=== PATIENT | female | born 2000 | race Caucasian/White ===

== ENCOUNTER 2023-07-17 09:09 | Outpatient (CLI) | payer BC, SELFPAY ==
--- NOTE | 2023-07-17 11:00 | NEURO_ITS ---
Impression: # Complains of spasms in right upper extremity. # No Carpal Tunnel Syndrome or ulnar neuropathy. # Needle/EMG exam negative for myotonia or denervation potentials # Clinical correlation recommended. Could benefit from cervical MRI. Nerve Conduction Studies Anti Sensory Summary Table Stim Site NR Peak (ms) P-T Amp (?V) Site1 Site2 Delta-P (ms) Dist (cm) Deacon (m/s) Right Median Anti Sensory (2-3nd Digit) Wrist 2.6 58.9 Wrist 2-3nd Digit 2.6 14.0 54 Wrist 2.4 74.9 Wrist 2-3nd Digit 2.6 14.0 54 Right Radial Anti Sensory (Base 1st Digit) Wrist 2.0 37.4 Wrist Base 1st Digit 2.0 0.0 Right Ulnar Anti Sensory (5th Digit) Wrist 2.2 55.4 Wrist 5th Digit 2.2 14.0 64 Motor Summary Table Stim Site NR Onset (ms) O-P Amp (mV) Site1 Site2 Delta-0 (ms) Dist (cm) Deacon (m/s) Right Median Motor (Abd Poll Brev) Wrist 2.8 7.4 Elbow Wrist 4.1 26.0 63 Elbow 6.9 8.5 Right Ulnar Motor (Abd Dig Minimi) Wrist 2.3 5.7 A Elbow Wrist 4.2 27.0 64 A Elbow 6.5 4.9 F Wave Studies NR F-Lat (ms) L-R F-Lat (ms) Right Median (Mrkrs) (Abd Poll Brev) 28.07 Right Ulnar (Mrkrs) (Abd Dig Min) 27.25 EMG Side Muscle Nerve Root Ins Act Fibs Amp Dur Recrt Comment Right 1stDorInt Ulnar C8-T1 Nml Nml Nml Nml Nml Right Ext Indicis Radial (Post Int) C7-8 Nml Nml Nml Nml Nml Right Ext Digitorum Radial (Post Int) C7-8 Nml Nml Nml Nml Nml Right BrachioRad Radial C5-6 Nml Nml Nml Nml Nml Right PronatorTeres Median C6-7 Nml Nml Nml Nml Nml Right Abd Poll Brev Median C8-T1 Nml Nml Nml Nml Nml Right Biceps Musculocut C5-6 Nml Nml Nml Nml Nml Right Triceps Radial C6-7-8 Nml Nml Nml Nml Nml Right Deltoid Axillary C5-6 Nml Nml Nml Nml Nml MTDD
== END 2023-07-17 09:10 | disposition home or self-care (01) ==
DX: R20.2 Paresthesia of skin (principal)
CPT/HCPCS: 95886; 95909